=== PATIENT | female | born 1995 | race Caucasian/White ===

== ENCOUNTER 2018-04-10 17:35 | Emergency (ER) | payer BC ==
[~2018-04-10] VITALS: Ht 160 cm; Wt 59.0 kg
[2018-04-10 17:38] VITALS: Ht 160 cm; Wt 59.0 kg
[2018-04-10 18:30] LABS: BASOPHIL % 0.4 % (0-2); PLATELET COUNT 333 x10^3mcL (130-400); RED CELL DISTRIBUTION WIDTH 13.8 % (11.5-14.5)
[2018-04-10 18:35] LABS: CALCIUM 8.6 mg/dL (8.5-10.1); CARBON DIOXIDE 21.6 mmol/L (21-32); CHLORIDE SERUM 103 mmol/L (98-107); CREATININE SERUM 0.8 mg/dL (0.6-1.0); GFR1 > 60 mL/min; GLUCOSE SERUM 115 mg/dL (74-106); POTASSIUM SERUM 3.5 mmol/L (3.5-5.1); SODIUM SERUM 139 mmol/L (136-145)
[2018-04-10 18:47] LABS: ALBUMIN 3.8 g/dL (3.4-5.0); ALKALINE PHOSPHATASE 65 U/L (46-116); ALT/SGPT 50 U/L (14-59); AMYLASE 46 U/L (25-115); AST/SGOT 56 U/L (15-37); BILIRUBIN TOTAL 1.17 mg/dL (0.20-1.00); LIPASE 117 IU/L (73-393); T4(THYROXINE) 8.5 ug/dL (4.7-13.3); TOTAL PROTEIN, SERUM 7.4 g/dL (6.4-8.2)
[2018-04-10 20:30] VITALS: BP 120/92
== END 2018-04-10 20:31 | disposition home or self-care (01) ==
LOC: ED 17:35
PROVIDERS: Emergency Medicine
DX: R00.2 Palpitations (principal); R55 Syncope and collapse; M94.0 Chondrocostal junction syndrome [Tietze]
CPT/HCPCS: J1885; J2405; J3475; J7030

== ENCOUNTER 2019-11-08 10:31 | Emergency (ER) | payer BC ==
[~2019-11-08] VITALS: Ht 160 cm; Wt 64.0 kg
[2019-11-08 11:02] VITALS: Ht 160 cm; Wt 64.0 kg
[2019-11-08 12:48] VITALS: BP 118/68
== END 2019-11-08 12:20 | disposition home or self-care (01) ==
LOC: ED 10:31
DX: J02.9 Acute pharyngitis, unspecified (principal)